=== PATIENT | female | born 1960 | race Caucasian/White ===

== ENCOUNTER → 2017-01-03 | Outpatient (CLI) | payer OTHER | END | disposition home or self-care (01) | LOC: PTH.S 09:54 | DX: E11.9 Type 2 diabetes mellitus without complications (principal); I77.6 Arteritis, unspecified ==

== ENCOUNTER → 2017-03-06 | Outpatient (CLI) | payer OTHER | END | disposition home or self-care (01) | DX: I77.6 Arteritis, unspecified (principal) ==

== ENCOUNTER → 2017-03-08 | Outpatient (CLI) | payer OTHER | END | disposition home or self-care (01) | LOC: PTH.S 15:09 | DX: R79.82 Elevated C-reactive protein (CRP) (principal) ==